=== PATIENT | female | born 1985 | race Caucasian/White ===

== ENCOUNTER 2017-07-29 12:09 | Inpatient (IN) | payer SELFPAY ==
[~2017-07-29] VITALS: Ht 165.1 cm; Wt 67.9 kg
[~2017-07-29 12:09] MED LIST: PRENTAB26 PO
[2017-07-29] MEDS ORDERED: MoRPHine SULFATE 2 MG/ML CARP IV STA (12:22)
[2017-07-29] MEDS ORDERED: ONDANSETRON INJ 2 MG/ML 2 ML VIAL IV STA (12:22)
[2017-07-29] MEDS ORDERED: SODIUM CHLORIDE 0.9% 1000ML 1,000 ML IV STA ×2 (12:22→13:50)
--- NOTE | 2017-07-29 12:49 | EMERGENCY ROOM VISIT NOTE ---
History First contact with patient: 12:15 Chief Complaint: ABDOMINAL PAIN Stated Complaint: ABD PAIN, DIARRHEA Nursing Triage Summary: pt presents for evaluation of abdominal pain, vomiting today, diarrhea since . History of Present Illness The patient is a 31 year old female who presents to the Emergency Room with complaints of abdominal pain and diarrhea. The patient states her symptoms started 2 days ago. She first developed some light vaginal bleeding and she thought she was getting her period. She states that she has had decreased appetite and felt worse on Monday. She states that yesterday morning the diarrhea started. She believes she noticed some blood in her stool today. She states the vaginal bleeding has completely stopped. She reports pain on the right side of the abdomen. She reports one episode of vomiting today. She rates her discomfort a 3/10. She states the pain is wavelike in nature. She denies any fevers. She denies any chest pain or trouble breathing. She denies any dysuria, urgency or frequency. She denies any recent antibiotic use or travel. She denies any recent sick contacts. She states she has had a tubal ligation and denies chance of . The patient was recently at the [employer]. 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 Review of Systems A 10 system review of systems was completed with positives and pertinent negatives listed in the HPI. Past Medical/Surgical History Medical Problems: (1) Bloody diarrhea patient denies Social History Smoking Status: Current Every Day Smoker Marital Status: single Allergies Coded Allergies: No Known Allergies (Verified , 07/29/17) Physical Exam Vital Signs Date Time Temp Pulse Resp B/P (MAP) Pulse Ox O2 Delivery O2 Flow Rate FiO2 07/29/17 16:00 99 Room Air 07/29/17 15:32 96 20 109/71 Room Air 07/29/17 14:45 80 117/71 91 125/75 88 123/73 07/29/17 14:01 90 20 122/71 99 Room Air 07/29/17 13:21 83 07/29/17 12:10 36.6 111 17 106/69 92 Room Air Physical Exam VITALS: Vitals are noted on the nurse's note and reviewed by myself. Vital signs stable. GENERAL: This is a 31 year old female, in no acute distress, nondiaphoretic, well-developed well-nourished. SKIN: The skin was without rashes, erythema, edema, or bruising. There is no tenting of the skin. Capillary reflex less than 2 seconds. HEAD: Normocephalic atraumatic. EARS: The external ears are normal in appearance. EYES: Pupils equal round and reactive to light and accommodation. Conjunctivae without injection, sclerae without icterus. Extraocular movements intact. NOSE: Patent, turbinates without inflammation or discharge. MOUTH: Mucous membranes moist. Tonsils are not enlarged. Pharynx without erythema or exudate. Uvula midline. Airway patent. Tongue does not deviate. NECK: Supple without nuchal rigidity. No lymphadenopathy. No thyromegaly. Cervical spine is nontender. No JVD. HEART: Regular rate and rhythm without murmurs gallops or rubs. LUNGS: Clear to auscultation bilaterally without wheezes, rales or rhonchi. No retractions or accessory muscle use. ABDOMEN: Positive bowel sounds x 4. Soft, moderate right lower abdominal tenderness, without masses or organomegaly. MUSCULOSKELETAL: No muscle atrophy, erythema, or edema noted. Full range of motion in all extremities. Normal gait. Strength 5/5 throughout. NEURO: Patient was alert and oriented to person place and time. No focal neurological deficits. Medical Decision & Procedures ER Provider Diagnostic Interpretation: ABD/PELVIS WITHOUT FOR STONE HISTORY: 31 years-old Female right flank pain acute right-sided flank pain with diarrhea and history of nephrolithiasis. COMPARISON: None available TECHNIQUE: Multiple axial CT images of the abdomen and pelvis were obtained without IV contrast. A dose lowering technique was used consistent with the principals of ALARA. FINDINGS: Lung bases are clear. There is no pneumoperitoneum identified. Imaged inferior cardiac chambers are unremarkable. The liver, spleen, pancreas and adrenal glands are within normal limits. 3 mm nonobstructing calculus is seen within the inferior pole left kidney. No definite ureteral calculi or hydronephrosis identified. 7 mm calcification of the right lateral hemipelvis suggests a phlebolith. Follicular changes are seen within the bilateral ovaries. Uterus is unremarkable. Mild to moderate amount of free pelvic fluid is seen within the dependent pelvis. The abdominal aorta is normal in course and caliber. Scattered hyperattenuating foci are seen within the colon. There is marked wall thickening of the colon measuring up to 1.5 cm involving the cecum extending to the mid transverse colon with surrounding moderate inflammatory changes. There is additional wall thickening with inflammatory stranding involving the terminal ileum. There is apparent irregularity of the mucosa within the ascending colon which is not well seen without contrast. Air-fluid levels within the colon are seen within this distribution. 10 x 5 mm appendicolith is noted within the mid appendiceal lumen. Appendix is upper limits of normal at 6 mm and is tortuous. Additional 6 mm calcification within the lower right pelvis may reflect an additional appendicolith. No definite evidence of acute appendicitis. Scattered adenopathy of the right lower quadrant mesentery with lymph nodes measuring up to 8 mm in short axis likely reactive. Soft tissues are unremarkable. Bones appear intact. IMPRESSION: 1. Marked wall thickening of the cecum, ascending and transverse colon with associated moderate mesenteric inflammatory stranding is noted with additional wall thickening and mild inflammation of the distal ileum. Differential considerations would include infectious colitis or inflammatory bowel disease. Follow-up colonoscopy after treatment may be beneficial to exclude neoplasm. 2. Appendicoliths are present within a noninflamed appearing appendix. 3. Mild free pelvic fluid, likely reactive. 4. Nonobstructing left nephrolithiasis. Laboratory Results 07/29/17 12:55 Red Blood Count 4.66, Mean Corpuscular Volume 92.7, Mean Corpuscular Hemoglobin 32.8, Mean Corpuscular Hemoglobin Concent 35.4, Mean Platelet Volume 10.0, Neutrophils (%) (Auto) 81.6, Lymphocytes (%) (Auto) 10.5, Monocytes (%) (Auto) 6.7, Eosinophils (%) (Auto) 0.8, Basophils (%) (Auto) 0.1, Neutrophils # (Auto) 11.77, Lymphocytes # (Auto) 1.51, Monocytes # (Auto) 0.97, Eosinophils # (Auto) 0.12, Basophils # (Auto) 0.02 07/29/17 12:55 Test 07/29/17 12:55 White Blood Count 14.43 K/uL (4.8-10.8) Red Blood Count 4.66 M/uL (4.2-5.4) Hemoglobin 15.3 g/dL (12.0-16.0) Hematocrit 43.2 % (37-47) Mean Corpuscular Volume 92.7 fL (80-100) Mean Corpuscular Hemoglobin 32.8 pg (25-34) Mean Corpuscular Hemoglobin Concent 35.4 g/dl (32-36) Platelet Count 196 K/uL (130-400) Mean Platelet Volume 10.0 fL (7.4-10.4) Neutrophils (%) (Auto) 81.6 % Lymphocytes (%) (Auto) 10.5 % Monocytes (%) (Auto) 6.7 % Eosinophils (%) (Auto) 0.8 % Basophils (%) (Auto) 0.1 % Neutrophils # (Auto) 11.77 K/uL (1.4-6.5) Lymphocytes # (Auto) 1.51 K/uL (1.2-3.4) Monocytes # (Auto) 0.97 K/uL (0.11-0.59) Eosinophils # (Auto) 0.12 K/uL (0-0.5) Basophils # (Auto) 0.02 K/uL (0-0.2) RDW Standard Deviation 41.3 fL (36.4-46.3) RDW Coefficient of Variation 12.2 % (11.5-14.5) Immature Granulocyte % (Auto) 0.3 % Immature Granulocyte # (Auto) 0.04 K/uL (0.00-0.02) Anion Gap 4.0 mmol/L (3-11) Est Creatinine Clear Calc Drug Dose 100.9 ml/min Estimated GFR () 128.4 Estimated GFR (Non- 110.8 BUN/Creatinine Ratio 12.8 (10-20) Calcium Level 9.2 mg/dl (8.5-10.1) Total Bilirubin 0.7 mg/dl (0.2-1) Aspartate Amino Transf (AST/SGOT) 12 U/L (15-37) Alanine Aminotransferase (ALT/SGPT) 18 U/L (12-78) Alkaline Phosphatase 85 U/L (45-117) Total Protein 7.9 gm/dl (6.4-8.2) Albumin 3.8 gm/dl (3.4-5.0) Globulin 4.1 gm/dl (2.5-4.0) Albumin/Globulin Ratio 0.9 (0.9-2) Lipase 58 U/L (73-393) Medications Administered Medications (Trade) Dose Ordered Sig/Herson Route Start Time Stop Time Status Last Admin Dose Admin Sodium Chloride 1,000 ml @ 999 mls/hr Q1H1M STAT IV 07/29/17 12:22 07/29/17 13:22 DC 07/29/17 12:22 999 MLS/HR Ondansetron HCl (Zofran Inj) 4 mg NOW STAT IV 07/29/17 12:22 07/29/17 12:24 DC 07/29/17 13:01 4 MG Morphine Sulfate (MoRPHine SULFATE INJ) 2 mg NOW STAT IV 07/29/17 12:22 07/29/17 12:24 DC 07/29/17 13:01 2 MG Morphine Sulfate (MoRPHine SULFATE INJ) 4 mg NOW STAT IV 07/29/17 13:41 07/29/17 13:43 DC 07/29/17 13:57 4 MG Ciprofloxacin/ Dextrose (Cipro / D5W) 400 mg NOW STAT IV 07/29/17 13:45 07/29/17 13:46 DC 07/29/17 14:07 400 MG Metronidazole (Flagyl / Nss) 500 mg NOW STAT IV 07/29/17 13:45 07/29/17 13:46 DC 07/29/17 14:07 500 MG Sodium Chloride 1,000 ml @ 999 mls/hr Q1H1M STAT IV 07/29/17 13:50 07/29/17 14:50 DC 07/29/17 13:57 999 MLS/HR Morphine Sulfate (MoRPHine SULFATE INJ) 4 mg NOW STAT IV 07/29/17 15:21 07/29/17 15:22 DC 07/29/17 15:31 4 MG Procedure The patient was monitored on a monitor and storage bin tender. She did have a sinus tachycardia. ED Course The patient was seen and examined. Previous visits were reviewed. The patient does not have a fever. She does have a leukocytosis of 14.43. She does not have any significant electrolyte abnormality. Lipase was not elevated. Stool sample was sent and cultures are pending. The patient was unable to provide a urine sample. CT scan of the abdomen and pelvis was obtained as above. The patient appears to have colitis. The patient was hydrated with normal saline solution The patient was given IV Cipro and IV Flagyl She was given a total of 3 doses of IV morphine, 2 mg, 4 mg and 4 mg. She was given 4 mg IV Zofran. The patient appears to have colitis. This is likely infectious in nature. She does have bloody diarrhea as well. She does not have any personal or family history of ulcerative colitis or Crohn's disease. She has not been on antibiotics recently. Initially, the patient want to try outpatient management. I had initially sent prescriptions for Zofran, Cipro, Flagyl and Percocet to the pharmacy. Prior to discharge, the patient again began to complain of 10/10 pain. I do not feel that the patient will be able to successfully complete outpatient management. I called the pharmacy to cancel all of the prescriptions. I discussed the case with Dr. Lucas. He will evaluate the patient. The C. difficile came back positive after the patient had been evaluated by Dr. Lucas. The charge nurse did notify him. The case was discussed with Dr. Causey who agrees with the assessment and plan. Medical Decision DIFFERENTIAL DIAGNOSIS: Hepatitis, cholecystitis, cholangitis, biliary colic, pancreatitis, pneumonia, subdiaphragmatic abscess, appendicitis, inguinal hernia , nephrolithiasis, inflammatory bowel disease, mesenteric adenitis, peptic ulcer disease, GERD, gastritis, pancreatitis, myocardial infarction, pericarditis, ruptured aortic aneurysm, appendicitis, gastroenteritis, bowel obstruction, splenic infarct, diverticulitis, mesenteric ischemia, metabolic, peritonitis, among others. CT Drug Monitoring Program Search Results: patient reviewed within database, no issues identified Impression Primary Impression: Colitis Additional Impressions: Bloody diarrhea Right lower quadrant abdominal pain Departure Information Dispostion Home / Self-Care Condition GOOD Referrals No Doctor, Assigned (PCP) Kendall Hernandez M.D. Patient Instructions ED Gastroenteritis Bacterial, My [facility] Problem Qualifiers
[2017-07-29 13:07] LABS: BASO % 0.1 %; BASO ABS # 0.02 K/uL (0-0.2); COMPLETE YES; EOS % 0.8 %; HEMATOCRIT 43.2 % (37-47); IG% 0.3 %; LYMPH % 10.5 %; LYMPH ABS # 1.51 K/uL (1.2-3.4); MEAN CELL VOLUME 92.7 fL (80-100); MEAN CORPUSCULAR HEMOGLOBIN 32.8 pg (25-34); MEAN CORPUSCULAR HGB CONC 35.4 g/dl (32-36); MONO % 6.7 %; NEUT % 81.6 %; PLATELET COUNT 196 K/uL (130-400); RED BLOOD COUNT 4.66 M/uL (4.2-5.4); WHITE BLOOD COUNT 14.43 K/uL (4.8-10.8)
[2017-07-29 13:26] LABS: BUN/CREATININE RATIO 12.8 (10-20); CALCIUM 9.2 mg/dl (8.5-10.1); CREATININE 0.72 mg/dl (0.60-1.20); POTASSIUM 3.6 mmol/L (3.5-5.1)
--- NOTE | 2017-07-29 13:33 | DIAGNOSTIC IMAGING REPORT ---
ABD/PELVIS WITHOUT FOR STONE HISTORY: 31 years-old Female right flank pain acute right-sided flank pain with diarrhea and history of nephrolithiasis. COMPARISON: None available TECHNIQUE: Multiple axial CT images of the abdomen and pelvis were obtained without IV contrast. A dose lowering technique was used consistent with the principals of DEDE. FINDINGS: Lung bases are clear. There is no pneumoperitoneum identified. Imaged inferior cardiac chambers are unremarkable. The liver, spleen, pancreas and adrenal glands are within normal limits. 3 mm nonobstructing calculus is seen within the inferior pole left kidney. No definite ureteral calculi or hydronephrosis identified. 7 mm calcification of the right lateral hemipelvis suggests a phlebolith. Follicular changes are seen within the bilateral ovaries. Uterus is unremarkable. Mild to moderate amount of free pelvic fluid is seen within the dependent pelvis. The abdominal aorta is normal in course and caliber. Scattered hyperattenuating foci are seen within the colon. There is marked wall thickening of the colon measuring up to 1.5 cm involving the cecum extending to the mid transverse colon with surrounding moderate inflammatory changes. There is additional wall thickening with inflammatory stranding involving the terminal ileum. There is apparent irregularity of the mucosa within the ascending colon which is not well seen without contrast. Air-fluid levels within the colon are seen within this distribution. 10 x 5 mm appendicolith is noted within the mid appendiceal lumen. Appendix is upper limits of normal at 6 mm and is tortuous. Additional 6 mm calcification within the lower right pelvis may reflect an additional appendicolith. No definite evidence of acute appendicitis. Scattered adenopathy of the right lower quadrant mesentery with lymph nodes measuring up to 8 mm in short axis likely reactive. Soft tissues are unremarkable. Bones appear intact. IMPRESSION: 1. Marked wall thickening of the cecum, ascending and transverse colon with associated moderate mesenteric inflammatory stranding is noted with additional wall thickening and mild inflammation of the distal ileum. Differential considerations would include infectious colitis or inflammatory bowel disease. Follow-up colonoscopy after treatment may be beneficial to exclude neoplasm. 2. Appendicoliths are present within a noninflamed appearing appendix. 3. Mild free pelvic fluid, likely reactive. 4. Nonobstructing left nephrolithiasis. The above report was generated using voice recognition software. It may contain grammatical, syntax or spelling errors. Electronically signed by: Bakari Peng M.D. 07/29/2017 1:32 PM Dictated Date/Time: 07/29/2017 1:23 PM
[2017-07-29] MEDS ORDERED: MoRPHine SULFATE 4 MG/ML 1 ML CARP\\VIAL IV STA ×2 (13:41→15:21)
[2017-07-29 13:45] LABS: ALB/GLOB RATIO 0.9 (0.9-2)
[2017-07-29] MEDS ORDERED: CIPROFLOXACIN 400MG / 200ML D5W IV STA (13:45)
[2017-07-29] MEDS ORDERED: METRONIDAZOLE 500MG / 100ML NSS IV STA (13:45)
[2017-07-29] MEDS ORDERED: OXYC-57 PO (14:51)
[2017-07-29] MEDS ORDERED: CIPR-255 PO (14:51)
[2017-07-29] MEDS ORDERED: ONDA4TAB10 SL (14:51)
[2017-07-29] MEDS ORDERED: METR-163 PO (14:51)
[2017-07-29 16:00] VITALS: O2SAT 99; Ht 165.1 cm; Wt 67.9 kg
[2017-07-29] MEDS ORDERED: ACETAMINOPHEN IV 100 ML IV PRN (16:15)
[2017-07-29] MEDS ORDERED: ZOLPIDEM TARTRATE 5 MG TAB PO PRN (16:15)
[2017-07-29] MEDS ORDERED: DiphenhydrAMINE HCL 50 MG/ML VIAL IV PRN (16:15)
[2017-07-29] MEDS ORDERED: ACETAMINOPHEN 325 MG TAB PO PRN (16:15)
[2017-07-29] MEDS ORDERED: METRONIDAZOLE / NSS 500 MG in PREMIXED NSS 100 ML IV SCH (16:30)
[2017-07-29] MEDS ORDERED: METRONIDAZOLE 500 MG TAB PO ONE (16:43)
--- NOTE | 2017-07-29 16:45 | History and Physical ---
History & Physical Date & Time of Service: Jul 29, 2017 at 16:31 Chief Complaint: Abd Pain, Diarrhea Primary Care Physician: No Doctor, Assigned History of Present Illness Source: patient The patient is a 31-year-old female who presents emergency department room with complaints of generalized abdominal pain and bloody diarrhea that began 2 days prior to arrival. She initially developed some light vaginal bleeding and thought she was getting her period. 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 She has no sick contacts that she is aware of, no recent antibiotic use, and has not had any recent travel. She has had a decreased appetite and has not been able to eat anything for 2 days. Family History NONCONTRIBUTORY Social History Smoking Status: Current Every Day Smoker Smokeless Tobacco Use: No Alcohol Use: none Drug Use: none Marital Status: single Housing status: lives with family Occupational Status: employed Immunizations History of Influenza Vaccine: Unknown History of Tetanus Vaccine?: tDAP TODAY BEFORE DISCH. Tetanus Immunization Date: Jul 15, 2007 History of Pneumococcal: Unknown History of Hepatitis B Vaccine: Unknown Multi-Drug Resistant Organisms History of MDRO: No Allergies Coded Allergies: No Known Allergies (Verified , 07/29/17) Review of Systems The patient denies chest pain, palpitations, shortness of breath, cough, lower extremity swelling, vision change, hearing change, sore throat, fevers, chills, sweats, blood in urine, dysuria, urinary frequency or urgency, lightheadedness, dizziness, headache, memory loss, rash, abnormal bruising, imbalance, focal weakness, numbness or tingling in arms or legs, generalized arthralgias or myalgias, back or neck pain, night sweats, or allergy symptoms. The review of systems is otherwise negative other than for that already noted above, and at least 10 systems have been reviewed. Physical Exam Vital Signs Date Time Temp Pulse Resp B/P (MAP) Pulse Ox O2 Delivery O2 Flow Rate FiO2 07/29/17 16:00 99 Room Air 07/29/17 15:32 96 20 109/71 Room Air 07/29/17 14:45 80 117/71 91 125/75 88 123/73 07/29/17 14:01 90 20 122/71 99 Room Air 07/29/17 13:21 83 07/29/17 12:10 36.6 111 17 106/69 92 Room Air The patient is awake, well-developed and adequately nourished, alert and oriented 3, normocephalic and atraumatic, lying in bed and in mild acute distress secondary to abdominal pain. HEENT--PERRL, EOMI, mucous membranes and oropharynx dry. Neck--supple, no JVD or bruits, thyroid normal, trachea midline, no adenopathy. Heart--normal S1 and S2, no extra beats, no murmurs, rubs or gallops. Lungs--clear bilaterally with good air movement, no respiratory distress, no accessory muscle use. Abdomen--normal bowel sounds and soft, generalized tenderness, nondistended, no hernias or masses, no organomegaly. Extremities--no cyanosis, clubbing or edema. There are good distal pulses b/l. Dermatologic--normal skin turgor, normal color, warm and dry, no abnormal lymph nodes, no rash. Neurologic--cranial nerves II through XII grossly intact, motor and sensory examination normal. Rheumatologic--normal range of motion, nontender, muscles and joints. Psychiatric--normal affect. Diagnostics Laboratory Results Results Past 24 Hours Test 07/29/17 12:55 Range/Units White Blood Count 14.43 4.8-10.8 K/uL Red Blood Count 4.66 4.2-5.4 M/uL Hemoglobin 15.3 12.0-16.0 g/dL Hematocrit 43.2 37-47 % Mean Corpuscular Volume 92.7 80-100 fL Mean Corpuscular Hemoglobin 32.8 25-34 pg Mean Corpuscular Hemoglobin Concent 35.4 32-36 g/dl Platelet Count 196 130-400 K/uL Mean Platelet Volume 10.0 7.4-10.4 fL Neutrophils (%) (Auto) 81.6 % Lymphocytes (%) (Auto) 10.5 % Monocytes (%) (Auto) 6.7 % Eosinophils (%) (Auto) 0.8 % Basophils (%) (Auto) 0.1 % Neutrophils # (Auto) 11.77 1.4-6.5 K/uL Lymphocytes # (Auto) 1.51 1.2-3.4 K/uL Monocytes # (Auto) 0.97 0.11-0.59 K/uL Eosinophils # (Auto) 0.12 0-0.5 K/uL Basophils # (Auto) 0.02 0-0.2 K/uL RDW Standard Deviation 41.3 36.4-46.3 fL RDW Coefficient of Variation 12.2 11.5-14.5 % Immature Granulocyte % (Auto) 0.3 % Immature Granulocyte # (Auto) 0.04 0.00-0.02 K/uL Sodium Level 136 136-145 mmol/L Potassium Level 3.6 3.5-5.1 mmol/L Chloride Level 103 98-107 mmol/L Carbon Dioxide Level 29 21-32 mmol/L Anion Gap 4.0 3-11 mmol/L Blood Urea Nitrogen 9 7-18 mg/dl Creatinine 0.72 0.60-1.20 mg/dl Est Creatinine Clear Calc Drug Dose 100.9 ml/min Estimated GFR () 128.4 Estimated GFR (Non- 110.8 BUN/Creatinine Ratio 12.8 10-20 Random Glucose 97 70-99 mg/dl Calcium Level 9.2 8.5-10.1 mg/dl Total Bilirubin 0.7 0.2-1 mg/dl Aspartate Amino Transf (AST/SGOT) 12 15-37 U/L Alanine Aminotransferase (ALT/SGPT) 18 12-78 U/L Alkaline Phosphatase 85 45-117 U/L Total Protein 7.9 6.4-8.2 gm/dl Albumin 3.8 3.4-5.0 gm/dl Globulin 4.1 2.5-4.0 gm/dl Albumin/Globulin Ratio 0.9 0.9-2 Lipase 58 73-393 U/L Microbiology Results 07/29/17 WBC Smear, Received Pending 07/29/17 Shiga Toxin Test, Received Pending 07/29/17 Stool Culture, Received Pending 07/29/17 C.difficile Toxin B Gene (PCR), Received Pending Diagnostic Radiology Patient Name: MEMO MERCER Unit Number: [id number] Dictated: 07/29/171322 Transcribed: 07/29/171322 GARCIA Printed Date/Time: [~ rep prt dt]/[~ rep prt tm] [~ rep ct labl] - [~ rep ct ivnm] [facility] [place] [address] Dictated: 07/29/171322 Transcribed: 07/29/171322 JRB Printed Date/Time: [~ rep prt dt]/[~ rep prt tm] [~ rep ct labl] - [~ rep ct ivnm] ABD/PELVIS WITHOUT FOR STONE HISTORY: 31 years-old Female right flank pain acute right-sided flank pain with diarrhea and history of nephrolithiasis. COMPARISON: None available TECHNIQUE: Multiple axial CT images of the abdomen and pelvis were obtained without IV contrast. A dose lowering technique was used consistent with the principals of DEDE. FINDINGS: Lung bases are clear. There is no pneumoperitoneum identified. Imaged inferior cardiac chambers are unremarkable. The liver, spleen, pancreas and adrenal glands are within normal limits. 3 mm nonobstructing calculus is seen within the inferior pole left kidney. No definite ureteral calculi or hydronephrosis identified. 7 mm calcification of the right lateral hemipelvis suggests a phlebolith. Follicular changes are seen within the bilateral ovaries. Uterus is unremarkable. Mild to moderate amount of free pelvic fluid is seen within the dependent pelvis. The abdominal aorta is normal in course and caliber. Scattered hyperattenuating foci are seen within the colon. There is marked wall thickening of the colon measuring up to 1.5 cm involving the cecum extending to the mid transverse colon with surrounding moderate inflammatory changes. There is additional wall thickening with inflammatory stranding involving the terminal ileum. There is apparent irregularity of the mucosa within the ascending colon which is not well seen without contrast. Air-fluid levels within the colon are seen within this distribution. 10 x 5 mm appendicolith is noted within the mid appendiceal lumen. Appendix is upper limits of normal at 6 mm and is tortuous. Additional 6 mm calcification within the lower right pelvis may reflect an additional appendicolith. No definite evidence of acute appendicitis. Scattered adenopathy of the right lower quadrant mesentery with lymph nodes measuring up to 8 mm in short axis likely reactive. Soft tissues are unremarkable. Bones appear intact. IMPRESSION: 1. Marked wall thickening of the cecum, ascending and transverse colon with associated moderate mesenteric inflammatory stranding is noted with additional wall thickening and mild inflammation of the distal ileum. Differential considerations would include infectious colitis or inflammatory bowel disease. Follow-up colonoscopy after treatment may be beneficial to exclude neoplasm. 2. Appendicoliths are present within a noninflamed appearing appendix. 3. Mild free pelvic fluid, likely reactive. 4. Nonobstructing left nephrolithiasis. The above report was generated using voice recognition software. It may contain grammatical, syntax or spelling errors. Electronically signed by: Bakari Peng M.D. 07/29/2017 1:32 PM Dictated Date/Time: 07/29/2017 1:23 PM The status of this report is Signed. Draft = Not yet reviewed or approved by Radiologist. Signed = Reviewed and approved by Radiologist. <AttendingPhy></AttendingPhy> <FamilyPhy>No Doctor, Assigned</FamilyPhy> < PrimaryPhy>No Doctor, Assigned</PrimaryPhy> <UnitNumber>[id number]</UnitNumber> <VisitNumber>[id number]</VisitNumber> <PatientName>MEMO MERCER</ PatientName> <DateOfBirth>1985</DateOfBirth> <Location>C.EDB</Location> < ServiceDate>07/29/17</ServiceDate> <MNE>ESINDI</MNE> <OrderingPhy>Betina Carmona PA-C</OrderingPhy> <OrderingPhyMNE>f rep ord dr magdaleno</OrderingPhyMNE > <DictatingPhyMNE>f rep dict dr magdaleno</DictatingPhyMNE> <CCListMNE>f rep ct sharla</ CCListMNE> <AdmittingPhyMNE>f pt admit dr magdaleno</AdmittingPhyMNE> <AttendingPhyMNE >f pt attend dr magdaleno</AttendingPhyMNE> <ConsultingPhyMNE>f pt consult dr magdaleno</ConsultingPhyMNE> <FamilyPhyMNE>f pt fam dr magdaleno</FamilyPhyMNE> <OtherPhyMNE>f pt other dr magdaleno</OtherPhyMNE> < PrimaryPhyMNE>f pt prim care dr magdaleno</PrimaryPhyMNE> <ReferringPhyMNE>f pt referring dr magadleno</ReferringPhyMNE> Impression Assessment and Plan C. difficile colitis--the patient will be admitted to the medical surgical floor. Normal saline with KCl 20 mEq at 150 ML's per hour. Famotidine 20 mg IV every 12 hours. Flagyl 500 mg by mouth 3 times a day. Morphine sulfate 2-4 mg IV every 2 hours when necessary moderate to severe pain. Clear liquid diet. Zofran 4 mg IV every 6 hours when necessary. Acetaminophen 650 mg by mouth every 6 hours when necessary mild pain or temperature Level of Care Med/Surg Advanced Directives Existing Advance Directive: No Existing Living Will: No Existing Power of Language Path: No Resuscitation Status FULL RESUSCITATION VTE Prophylaxis VTE Risk Assessment Done? Y/N: Yes Risk Level: Low Given or contraindicated: SCD's Social Service Consult None Apply
[2017-07-29 17:15] VITALS: BP 111/63; PULSE 95; TEMP 36.8; O2SAT 99
[2017-07-29] MEDS: NSS + 20MEQ KCL 1000ML 1,000 ML IV SCH (17:30)
[2017-07-29] MEDS: MoRPHine SULFATE 4 MG/ML 1 ML CARP\\VIAL IV PRN ×2 (17:33→19:49)
[2017-07-29] MEDS: FAMOTIDINE IV INJ 20 MG in DEXTROSE 5% 100ML 100 ML IV SCH (17:44)
[2017-07-29 19:44] LABS: URINE APPEARANCE CLEAR (CLEAR); URINE BILIRUBIN NEG (NEG); URINE COLOR YELLOW; URINE EPITHELIAL CELL AUTO >30 /lpf (0-5); URINE NITRITE NEG (NEG); URINE PH 5.5 (4.5-7.5); URINE SPECIFIC GRAVITY 1.014 (1.000-1.030); UROBILINOGEN NEG (NEG); ZZUR CULT IF INDIC CLEAN CATCH NO
[2017-07-29 19:45] LABS: MANUAL MICROSCOPIC REQUIRED? NO; REVIEW REQ? NO
[2017-07-29 19:47] LABS: PREG INTERNAL NEGATIVE QC NEG CLEAR BACKGROUND; PREG INTERNAL POSITIVE QC POS CONTROL LINE
[2017-07-29] MEDS: METRONIDAZOLE 500 MG TAB PO SCH (19:53)
[2017-07-29] MEDS: ONDANSETRON INJ 2 MG/ML 2 ML VIAL IV PRN (19:59)
[2017-07-30] VITALS: BP 104/68; PULSE 94; TEMP 36.9; O2SAT 97
[2017-07-30] MEDS: NSS + 20MEQ KCL 1000ML 1,000 ML IV SCH ×3 (00:29→13:35)
[2017-07-30] MEDS: MoRPHine SULFATE 2 MG/ML CARP IV PRN (00:29)
[2017-07-30 06:14] LABS: BASO % 0.2 %; BASO ABS # 0.02 K/uL (0-0.2); COMPLETE YES; EOS % 1.1 %; IG% 0.2 %; LYMPH % 13.2 %; LYMPH ABS # 1.48 K/uL (1.2-3.4); MEAN CELL VOLUME 95.9 fL (80-100); MEAN CORPUSCULAR HEMOGLOBIN 32.1 pg (25-34); MEAN CORPUSCULAR HGB CONC 33.4 g/dl (32-36); MEAN PLATELET VOLUME 9.8 fL (7.4-10.4); MONO % 6.1 %; NEUT % 79.2 %; PLATELET COUNT 144 K/uL (130-400); RED BLOOD COUNT 3.65 M/uL (4.2-5.4); WHITE BLOOD COUNT 11.17 K/uL (4.8-10.8)
[2017-07-30] MEDS: FAMOTIDINE IV INJ 20 MG in DEXTROSE 5% 100ML 100 ML IV SCH ×2 (06:16→19:21)
[2017-07-30 06:21] LABS: INR 1.1 (0.9-1.1); PARTIAL THROMBOPLASTIN RATIO 1.3; PROTHROMBIN TIME (PATIENT) 12.1 SECONDS (9.0-12.0)
[2017-07-30 07:00] LABS: ALT/SGPT 11 U/L (12-78); AST/SGOT 6 U/L (15-37); BLOOD UREA NITROGEN 5 mg/dl (7-18); BUN/CREATININE RATIO 11.8 (10-20); CARBON DIOXIDE 24 mmol/L (21-32); CHLORIDE 111 mmol/L (98-107); CREATININE 0.46 mg/dl (0.60-1.20); GLUCOSE 80 mg/dl (70-99); MAGNESIUM 1.7 mg/dl (1.8-2.4); POTASSIUM 3.8 mmol/L (3.5-5.1); SODIUM 141 mmol/L (136-145)
[2017-07-30 07:10] LABS: ALKALINE PHOSPHATASE 57 U/L (45-117)
[2017-07-30] MEDS: MoRPHine SULFATE 4 MG/ML 1 ML CARP\\VIAL IV PRN ×7 (07:30→19:20)
[2017-07-30] MEDS: METRONIDAZOLE 500 MG TAB PO SCH ×3 (07:33→20:08)
[2017-07-30 07:36] LABS: CALCIUM 7.8 mg/dl (8.5-10.1)
[2017-07-30 07:37] VITALS: BP 106/73; PULSE 63; TEMP 36.3; O2SAT 95
--- NOTE | 2017-07-30 13:20 | Family Medicine Progress Note ---
Progress Note Date of Service Jul 30, 2017. Subjective Pt evaluation today including: conversation w/ patient, physical exam, chart review, lab review, conversation w/ hr business partner consultant, review of inpatient medication list PO Intake: clear liquid diet Voiding: no voiding problems Patient admitted overnight for abdominal pain and diarrhea. Found to be c.diff positive Patient continues to have abdominal pain 5/10. 3 episodes of diarrhea this morning with blood. Able to tolerate full liquid diet No fevers, chills or sweats overnight. No nausea or vomiting. Constitutional: No fever, No chills, No sweats Respiratory: No cough, No sputum, No shortness of breath Cardiovascular: No chest pain, No edema, No palpitations Abdomen: + pain, + diarrhea, + GI bleeding, No nausea, No vomiting Skin: No rash, No itch, No new/changing skin lesions Medications Current Inpatient Medications Medications (Trade) Dose Ordered Sig/Herson Route Start Time Stop Time Status Last Admin Dose Admin Acetaminophen (Tylenol Tab) 650 mg Q4H PRN PO 07/29/17 16:15 08/28/17 16:14 Zolpidem Tartrate (Ambien Tab) 5 mg HSZ PRN PO 07/29/17 16:15 08/28/17 16:14 Ondansetron HCl (Zofran Inj) 4 mg Q6H PRN IV 07/29/17 16:15 08/28/17 16:14 07/29/17 19:59 4 MG Acetaminophen 100 ml @ 400 mls/hr Q8H PRN IV 07/29/17 16:15 08/28/17 16:14 Famotidine 20 mg/ Dextrose 102 ml @ 200 mls/hr Q12H IV 07/29/17 18:00 08/28/17 17:59 07/30/17 06:16 200 MLS/HR Potassium Chloride/Sodium Chloride 1,000 ml @ 110 mls/hr Q9H6M IV 07/29/17 18:00 08/28/17 17:59 07/30/17 07:32 150 MLS/HR Morphine Sulfate (MoRPHine SULFATE INJ) 2 mg Q2H PRN IV 07/29/17 16:15 08/12/17 16:14 07/30/17 00:29 2 MG Morphine Sulfate (MoRPHine SULFATE INJ) 4 mg Q2H PRN IV 07/29/17 16:15 08/12/17 16:14 07/30/17 11:26 4 MG Diphenhydramine HCl (Benadryl Inj) 25 mg Q4H PRN IV 07/29/17 16:15 08/28/17 16:14 Metronidazole (Flagyl Tab) 500 mg TID PO 07/29/17 20:00 08/12/17 20:59 07/30/17 07:33 500 MG Ranitidine HCl (zANTac TAB) 150 mg BID PO 07/30/17 20:00 08/29/17 19:59 UNV Objective Vital Signs Date Time Temp Pulse Resp B/P (MAP) Pulse Ox O2 Delivery O2 Flow Rate FiO2 07/30/17 07:41 Room Air 07/30/17 07:37 36.3 63 20 106/73 (84) 95 Room Air 07/30/17 00:00 36.9 94 22 104/68 (80) 97 Room Air 07/29/17 23:59 Room Air 07/29/17 20:00 Room Air 07/29/17 17:15 36.8 95 22 111/63 (79) 99 Room Air 07/29/17 16:39 79 18 118/62 100 Room Air 07/29/17 16:00 99 Room Air 07/29/17 15:32 96 20 109/71 Room Air 07/29/17 14:45 80 117/71 91 125/75 88 123/73 07/29/17 14:01 90 20 122/71 99 Room Air 07/29/17 13:21 83 Physical Exam General Appearance: WD/WN, no apparent distress ENT: pharynx normal Respiratory/Chest: lungs clear, no respiratory distress, no accessory muscle use Cardiovascular: regular rate, rhythm, no JVD, no murmur Abdomen: normal bowel sounds, soft, no organomegaly, + rebound (in RLQ), + tenderness (most prominent in RLQ), + pertinent finding (Rovsings sign and psoas sign negative) Extremities: no calf tenderness Neurologic/Psychiatric: alert, normal mood/affect, oriented x 3 Skin: normal color, warm/dry, no rash Laboratory Results Results Past 24 Hours Test 07/29/17 19:28 07/30/17 05:56 Range/Units Urine Color YELLOW Urine Appearance CLEAR CLEAR Urine pH 5.5 4.5-7.5 Urine Specific [place] 1.014 1.000-1.030 Urine Protein NEG NEG Urine Glucose (UA) NEG NEG Urine Ketones 1+ NEG Urine Occult Blood 2+ NEG Urine Nitrite NEG NEG Urine Bilirubin NEG NEG Urine Urobilinogen NEG NEG Urine Leukocyte Esterase NEG NEG Urine WBC (Auto) 5-10 0-5 /hpf Urine RBC (Auto) 0-4 0-4 /hpf Urine Hyaline Casts (Auto) 1-5 0-5 /lpf Urine Epithelial Cells (Auto) >30 0-5 /lpf Urine Bacteria (Auto) NEG NEG Urine Test NEG NEG White Blood Count 11.17 4.8-10.8 K/uL Red Blood Count 3.65 4.2-5.4 M/uL Hemoglobin 11.7 12.0-16.0 g/dL Hematocrit 35.0 37-47 % Mean Corpuscular Volume 95.9 80-100 fL Mean Corpuscular Hemoglobin 32.1 25-34 pg Mean Corpuscular Hemoglobin Concent 33.4 32-36 g/dl Platelet Count 144 130-400 K/uL Mean Platelet Volume 9.8 7.4-10.4 fL Neutrophils (%) (Auto) 79.2 % Lymphocytes (%) (Auto) 13.2 % Monocytes (%) (Auto) 6.1 % Eosinophils (%) (Auto) 1.1 % Basophils (%) (Auto) 0.2 % Neutrophils # (Auto) 8.85 1.4-6.5 K/uL Lymphocytes # (Auto) 1.48 1.2-3.4 K/uL Monocytes # (Auto) 0.68 0.11-0.59 K/uL Eosinophils # (Auto) 0.12 0-0.5 K/uL Basophils # (Auto) 0.02 0-0.2 K/uL RDW Standard Deviation 43.4 36.4-46.3 fL RDW Coefficient of Variation 12.3 11.5-14.5 % Immature Granulocyte % (Auto) 0.2 % Immature Granulocyte # (Auto) 0.02 0.00-0.02 K/uL Prothrombin Time 12.1 9.0-12.0 SECONDS Prothromb Time International Ratio 1.1 0.9-1.1 Activated Partial Thromboplast Time 33.6 21.0-31.0 SECONDS Partial Thromboplastin Ratio 1.3 Sodium Level 141 136-145 mmol/L Potassium Level 3.8 3.5-5.1 mmol/L Chloride Level 111 98-107 mmol/L Carbon Dioxide Level 24 21-32 mmol/L Anion Gap 6.0 3-11 mmol/L Blood Urea Nitrogen 5 7-18 mg/dl Creatinine 0.46 0.60-1.20 mg/dl Est Creatinine Clear Calc Drug Dose 158.0 ml/min Estimated GFR () > 150.0 Estimated GFR (Non- 131.6 BUN/Creatinine Ratio 11.8 10-20 Random Glucose 80 70-99 mg/dl Calcium Level 7.8 8.5-10.1 mg/dl Magnesium Level 1.7 1.8-2.4 mg/dl Total Bilirubin 0.5 0.2-1 mg/dl Direct Bilirubin 0.1 0-0.2 mg/dl Aspartate Amino Transf (AST/SGOT) 6 15-37 U/L Alanine Aminotransferase (ALT/SGPT) 11 12-78 U/L Alkaline Phosphatase 57 45-117 U/L Total Protein 5.6 6.4-8.2 gm/dl Albumin 2.5 3.4-5.0 gm/dl Microbiology Results 07/29/17 WBC Smear - Final, Resulted 07/29/17 Shiga Toxin Test - Preliminary, Resulted No E. Coli shiga toxin 1 or shiga tox... 07/29/17 Stool Culture - Preliminary, Resulted NO SALMONELLA ISOLATED TO DATE,... 07/29/17 C.difficile Toxin B Gene (PCR) - Final, Complete Positive for C. difficile toxin B gene Assessment and Plan 31 year old female diagnosed with C.diff colitis C.diff colitis - CT scan showed inflammatory changes and thickening in cecum, ascending and transverse colon - C diff toxin positive - Started om flagyl PO tid - Switched to zantac 150bid PO - Continue maintenance fluids of 125 mls/hr - Morphine IV 2mg for pain control - Repeat abdominal xray to monitor for perforation or toxic megacolon - Stool studies still pending - Will need follow up colonoscopy in 6 weeks as outpatient - Advance diet to regular diet at dinner Anemia - Hgb 11.17 from 15 on admission - Likely acute blood loss from diarrhea and dehydration - Repeat h/h at 3pm DVT prophylaxis - SCD FULL CODE Continued [facility] stay due to: inadequate oral pain control Reviewed: Pt Seen/Exam by Me History Resident Physician Supervision Note: I interviewed and examined the patient. Discussed with Dr. Mcgill and agree with findings and plan as documented in the note. Any exceptions or clarifications are listed here: Pt still having bloody stools mixed with brown stool, lower abd pain R>L, no nausea but after eating reg diet today she had worsening pain. No recent abx use, no recent illness, no h/o C. diff Vitals reviewed mild distress, alert, awake, oriented RRR no mgr CTAB breathing unlabored Abd hypoactive BS, soft, +TTP RLQ>LLQ with some guarding on right side Ext no edema, 2+ DP pulses bilat, no calf tenderness KUB today with persistent marked colonic wall thickening Pt is a 31 yo female with C. diff colitis, likely community-acquired given no recent viral GE, no abx use, no h/o C. diff, and was at [facility] x 10 days with chance of exposure. -continue po Flagyl and if no improvement in first 48 hrs, switch to po Vanco -continue IVF hydration, pain meds -check Abd xray if worsening pain Documented By: Michelle Mars
--- NOTE | 2017-07-30 14:00 | DIAGNOSTIC IMAGING REPORT ---
KUB CLINICAL HISTORY: Abdominal pain. COMPARISON STUDY: CT of the abdomen and pelvis July 29, 2017. FINDINGS: The sensitivity for detection of free air is diminished on this supine exam. However, none is identified. Note is made of thumbprinting of the ascending colon and hepatic flexure consistent with marked colonic wall thickening which was shown on CT of July 29, 2015. IMPRESSION: Redemonstration of marked wall thickening of the ascending colon and hepatic flexure consistent with colitis, likely infectious in etiology. No bowel obstruction. Electronically signed by: Estuardo Polk M.D. 07/30/2017 1:59 PM Dictated Date/Time: 07/30/2017 1:56 PM
[2017-07-30 15:00] LABS: HEMATOCRIT 33.1 % (37-47)
[2017-07-30 16:14] VITALS: BP 101/66; PULSE 68; TEMP 36.9; O2SAT 96
[2017-07-30] MEDS ORDERED: MAGNESIUM SULFATE 1GM / D5W 1 GM in PREMIXED IN D5W 100 ML IV ONE (17:00)
[2017-07-30 17:30] VITALS: O2SAT 96
[2017-07-30] MEDS: ONDANSETRON INJ 2 MG/ML 2 ML VIAL IV PRN (19:20)
[2017-07-30] MEDS: RANITIDINE HCL 150 MG TAB PO SCH (20:08)
[2017-07-31] VITALS: BP 99/60; PULSE 84; TEMP 37.3; O2SAT 96
[2017-07-31] MEDS: NSS + 20MEQ KCL 1000ML 1,000 ML IV SCH ×3 (00:14→17:59)
[2017-07-31] MEDS: MoRPHine SULFATE 2 MG/ML CARP IV PRN ×4 (04:50→16:01)
[2017-07-31] MEDS: FAMOTIDINE IV INJ 20 MG in DEXTROSE 5% 100ML 100 ML IV SCH ×2 (06:14→18:00)
[2017-07-31 07:37] LABS: BASO % 0.5 %; BASO ABS # 0.04 K/uL (0-0.2); COMPLETE YES; HEMATOCRIT 31.8 % (37-47); IG% 0.4 %; LYMPH % 20.5 %; LYMPH ABS # 1.69 K/uL (1.2-3.4); MEAN CELL VOLUME 94.4 fL (80-100); MEAN CORPUSCULAR HEMOGLOBIN 32.3 pg (25-34); MEAN CORPUSCULAR HGB CONC 34.3 g/dl (32-36); MEAN PLATELET VOLUME 9.7 fL (7.4-10.4); NEUT % 68.6 %; PLATELET COUNT 132 K/uL (130-400); RED BLOOD COUNT 3.37 M/uL (4.2-5.4); WHITE BLOOD COUNT 8.24 K/uL (4.8-10.8)
[2017-07-31 07:45] LABS: INR 1.1 (0.9-1.1); PARTIAL THROMBOPLASTIN RATIO 1.3; PROTHROMBIN TIME (PATIENT) 11.8 SECONDS (9.0-12.0)
[2017-07-31] MEDS: RANITIDINE HCL 150 MG TAB PO SCH ×2 (07:49→19:44)
[2017-07-31] MEDS: METRONIDAZOLE 500 MG TAB PO SCH ×3 (07:49→19:44)
[2017-07-31 07:59] VITALS: BP 101/65; PULSE 74; TEMP 36.8; O2SAT 96
[2017-07-31 08:12] LABS: ALT/SGPT 9 U/L (12-78); BLOOD UREA NITROGEN 4 mg/dl (7-18); CALCIUM 8.2 mg/dl (8.5-10.1); CARBON DIOXIDE 25 mmol/L (21-32); CHLORIDE 111 mmol/L (98-107); CREATININE 0.35 mg/dl (0.60-1.20); GLUCOSE 92 mg/dl (70-99); MAGNESIUM 1.9 mg/dl (1.8-2.4); POTASSIUM 3.8 mmol/L (3.5-5.1); SODIUM 142 mmol/L (136-145)
[2017-07-31 08:15] LABS: ALKALINE PHOSPHATASE 57 U/L (45-117); AST/SGOT 8 U/L (15-37)
[2017-07-31] MEDS: MoRPHine SULFATE 4 MG/ML 1 ML CARP\\VIAL IV PRN (09:25)
[2017-07-31 12:00] VITALS: O2SAT 96
[2017-07-31 15:07] VITALS: BP 98/66; PULSE 67; TEMP 36.5; O2SAT 100
--- NOTE | 2017-07-31 17:43 | Family Medicine Progress Note ---
Progress Note Date of Service Jul 31, 2017. Subjective Pt evaluation today including: conversation w/ patient, physical exam, chart review, lab review, review of studies Pain: Mild abdominal cramping 4/10 Voiding: no voiding problems, no incontinence Patient is resting comfortably in bed this morning with no acute events overnight. The patient states the she did have some blood streaking in her stool this morning but no gross blood with her bowel movement. She has also had 4/10 intermittent abdominal cramping but that has improved from the last few day. She was also able to eat mashed potatoes today and has tolerated it well. She expressed a desire to transition from IV pain medications to PO if possible. Constitutional: + fatigue, No fever, No chills, No sweats Respiratory: No cough, No wheezing Cardiovascular: No chest pain, No palpitations Abdomen: + pain, + diarrhea, + GI bleeding, No nausea, No vomiting, No constipation Musculoskeletal: No joint pain Female : No dysuria Neurologic: No weakness Medications Current Inpatient Medications Medications (Trade) Dose Ordered Sig/Herson Route Start Time Stop Time Status Last Admin Dose Admin Acetaminophen (Tylenol Tab) 650 mg Q4H PRN PO 07/29/17 16:15 08/28/17 16:14 Zolpidem Tartrate (Ambien Tab) 5 mg HSZ PRN PO 07/29/17 16:15 08/28/17 16:14 Ondansetron HCl (Zofran Inj) 4 mg Q6H PRN IV 07/29/17 16:15 08/28/17 16:14 07/30/17 19:20 4 MG Acetaminophen 100 ml @ 400 mls/hr Q8H PRN IV 07/29/17 16:15 08/28/17 16:14 Famotidine 20 mg/ Dextrose 102 ml @ 200 mls/hr Q12H IV 07/29/17 18:00 08/28/17 17:59 07/31/17 06:14 200 MLS/HR Potassium Chloride/Sodium Chloride 1,000 ml @ 110 mls/hr Q9H6M IV 07/29/17 18:00 08/28/17 17:59 07/31/17 07:50 110 MLS/HR Morphine Sulfate (MoRPHine SULFATE INJ) 2 mg Q2H PRN IV 07/29/17 16:15 9/16/17 16:14 07/31/17 16:01 2 MG Morphine Sulfate (MoRPHine SULFATE INJ) 4 mg Q2H PRN IV 07/29/17 16:15 08/12/17 16:14 07/31/17 09:25 4 MG Diphenhydramine HCl (Benadryl Inj) 25 mg Q4H PRN IV 07/29/17 16:15 08/28/17 16:14 Metronidazole (Flagyl Tab) 500 mg TID PO 07/29/17 20:00 08/12/17 20:59 07/31/17 14:06 500 MG Ranitidine HCl (zANTac TAB) 150 mg BID PO 07/30/17 20:00 08/29/17 19:59 07/31/17 07:49 150 MG Oxycodone/ Acetaminophen (Percocet 5-325mg Tab) 1 tab Q4H PRN PO 07/31/17 14:00 08/14/17 13:59 Objective Vital Signs Date Time Temp Pulse Resp B/P (MAP) Pulse Ox O2 Delivery O2 Flow Rate FiO2 07/31/17 15:07 36.5 67 20 98/66 (77) 100 Room Air 07/31/17 12:00 96 Room Air 07/31/17 08:00 Room Air 07/31/17 07:59 36.8 74 18 101/65 (77) 96 Room Air 07/31/17 00:00 37.3 84 18 99/60 (73) 96 Room Air 07/30/17 23:59 Room Air 07/30/17 20:00 Room Air Physical Exam General Appearance: WD/WN, no apparent distress Eyes: normal inspection, sclerae normal Respiratory/Chest: chest non-tender, lungs clear, normal breath sounds Cardiovascular: regular rate, rhythm, no edema, no gallop Abdomen: normal bowel sounds, soft, + tenderness (RLQ abdominal tenderness) Extremities: no pedal edema, no calf tenderness Neurologic/Psychiatric: alert, normal mood/affect, oriented x 3 Laboratory Results Results Past 24 Hours Test 07/31/17 07:10 Range/Units White Blood Count 8.24 4.8-10.8 K/uL Red Blood Count 3.37 4.2-5.4 M/uL Hemoglobin 10.9 12.0-16.0 g/dL Hematocrit 31.8 37-47 % Mean Corpuscular Volume 94.4 80-100 fL Mean Corpuscular Hemoglobin 32.3 25-34 pg Mean Corpuscular Hemoglobin Concent 34.3 32-36 g/dl Platelet Count 132 130-400 K/uL Mean Platelet Volume 9.7 7.4-10.4 fL Neutrophils (%) (Auto) 68.6 % Lymphocytes (%) (Auto) 20.5 % Monocytes (%) (Auto) 7.0 % Eosinophils (%) (Auto) 3.0 % Basophils (%) (Auto) 0.5 % Neutrophils # (Auto) 5.65 1.4-6.5 K/uL Lymphocytes # (Auto) 1.69 1.2-3.4 K/uL Monocytes # (Auto) 0.58 0.11-0.59 K/uL Eosinophils # (Auto) 0.25 0-0.5 K/uL Basophils # (Auto) 0.04 0-0.2 K/uL RDW Standard Deviation 42.2 36.4-46.3 fL RDW Coefficient of Variation 12.3 11.5-14.5 % Immature Granulocyte % (Auto) 0.4 % Immature Granulocyte # (Auto) 0.03 0.00-0.02 K/uL Prothrombin Time 11.8 9.0-12.0 SECONDS Prothromb Time International Ratio 1.1 0.9-1.1 Activated Partial Thromboplast Time 32.6 21.0-31.0 SECONDS Partial Thromboplastin Ratio 1.3 Sodium Level 142 136-145 mmol/L Potassium Level 3.8 3.5-5.1 mmol/L Chloride Level 111 98-107 mmol/L Carbon Dioxide Level 25 21-32 mmol/L Anion Gap 6.0 3-11 mmol/L Blood Urea Nitrogen 4 7-18 mg/dl Creatinine 0.35 0.60-1.20 mg/dl Est Creatinine Clear Calc Drug Dose 207.6 ml/min Estimated GFR () > 150.0 Estimated GFR (Non- 144.0 BUN/Creatinine Ratio 10.0 10-20 Random Glucose 92 70-99 mg/dl Calcium Level 8.2 8.5-10.1 mg/dl Phosphorus Level 1.6 2.5-4.9 mg/dl Magnesium Level 1.9 1.8-2.4 mg/dl Total Bilirubin 0.4 0.2-1 mg/dl Direct Bilirubin 0.1 0-0.2 mg/dl Aspartate Amino Transf (AST/SGOT) 8 15-37 U/L Alanine Aminotransferase (ALT/SGPT) 9 12-78 U/L Alkaline Phosphatase 57 45-117 U/L Total Protein 5.5 6.4-8.2 gm/dl Albumin 2.5 3.4-5.0 gm/dl Assessment and Plan 31 year old female that presented on 07/29 with generalized abdominal pain and bloody diarrhea found to have Clostridium Difficile colitis 1) Clostridium Difficile Colitis - Abdominal pain improving, Leukocytosis improving, and hematochezia improving, Tolerating regular diet - C diff toxin positive - PO Flagyl day 2 - CT scan: Inflammatory changes and thickening in cecum, ascending and transverse colon - Abdominal X-Ray: Marked wall thickening of the ascending colon and hepatic flexure consistent with colitis, likely infectious in etiology. No bowel obstruction. - Zantac 150mg PO BID - Continue maintenance fluids of 110 mls/hr --> Once able to tolerate PO diet after 24 hrs will stop fluids - Morphine IV 2mg q2h PRN for pain control - Percocet 5/325 PO q4h PRN for pain - Stool studies pending (Ova Parasites, Isospora and Cyclospora, Cryptosporidium , Parasite Trichome) - Will need follow up colonoscopy in 6 weeks as outpatient 2) Anemia - Hgb 10.9 (15.3 on admission) - Stable since yesterday (11.0 yesterday afternoon) - Likely acute blood loss from diarrhea and dehydration - H/H in tomorrow's labs 3) DVT prophylaxis - SCD 4) Code Status - Full Resuscitation Resident Physician Supervision Note: I interviewed and examined the patient. Discussed with Dr. Shaikh and agree with findings and plan as documented in the note. Any exceptions or clarifications are listed here: None Documented By: Josué Klein feeling better but still needingpain meds, diarrhea improving but still persists all other ROS otherwise negative except for as above vitals noted nad fatigued appearing abd soft nd but diffuse tenderness voluntary guarding no rigidity Cdiff colitis w sepsis present on admission -improving -continue current care -home once pain improved -discussed contagion prevention otherwise as above
[2017-07-31] MEDS: OXYCODONE/ACETAMINOPHEN 5-325 TAB PO PRN (18:05)
[2017-07-31] MEDS: ONDANSETRON INJ 2 MG/ML 2 ML VIAL IV PRN (19:38)
[2017-07-31 23:05] VITALS: BP 108/73; PULSE 72; TEMP 37; O2SAT 99
[2017-08-01] MEDS: NSS + 20MEQ KCL 1000ML 1,000 ML IV SCH (02:30)
[2017-08-01] MEDS: MoRPHine SULFATE 2 MG/ML CARP IV PRN ×2 (02:41→07:23)
[2017-08-01] MEDS: FAMOTIDINE IV INJ 20 MG in DEXTROSE 5% 100ML 100 ML IV SCH (05:32)
[2017-08-01] MEDS ORDERED: POTASSIUM PHOS 3 MMOL/1 ML INFUSION IV STA (06:40)
[2017-08-01] MEDS ORDERED: POTASSIUM PHOSPHATE INJ 21 MMOL in SODIUM CHLORIDE 0.9% 500ML 500 ML IV STA (06:46)
[2017-08-01 07:11] LABS: BASO % 0.5 %; BASO ABS # 0.03 K/uL (0-0.2); COMPLETE YES; EOS % 5.5 %; HEMATOCRIT 31.8 % (37-47); IG% 0.2 %; LYMPH % 33.4 %; LYMPH ABS # 1.83 K/uL (1.2-3.4); MEAN CELL VOLUME 94.1 fL (80-100); MEAN CORPUSCULAR HEMOGLOBIN 31.1 pg (25-34); MONO % 9.1 %; NEUT % 51.3 %; PLATELET COUNT 154 K/uL (130-400); RED BLOOD COUNT 3.38 M/uL (4.2-5.4); WHITE BLOOD COUNT 5.48 K/uL (4.8-10.8)
[2017-08-01 07:19] LABS: INR 1.1 (0.9-1.1); PARTIAL THROMBOPLASTIN RATIO 1.2; PROTHROMBIN TIME (PATIENT) 11.9 SECONDS (9.0-12.0)
[2017-08-01] MEDS: METRONIDAZOLE 500 MG TAB PO SCH ×2 (07:23→13:28)
[2017-08-01] MEDS: RANITIDINE HCL 150 MG TAB PO SCH (07:23)
[2017-08-01 07:43] VITALS: BP 97/68; PULSE 66; TEMP 36.9; O2SAT 98
[2017-08-01 07:46] LABS: ALT/SGPT 12 U/L (12-78); BLOOD UREA NITROGEN 3 mg/dl (7-18); BUN/CREATININE RATIO 6.8 (10-20); CALCIUM 8.1 mg/dl (8.5-10.1); CARBON DIOXIDE 28 mmol/L (21-32); CHLORIDE 112 mmol/L (98-107); GLUCOSE 94 mg/dl (70-99); MAGNESIUM 1.8 mg/dl (1.8-2.4); POTASSIUM 3.9 mmol/L (3.5-5.1); SODIUM 142 mmol/L (136-145)
[2017-08-01 07:49] LABS: ALKALINE PHOSPHATASE 60 U/L (45-117); AST/SGOT 9 U/L (15-37)
[2017-08-01 08:00] VITALS: O2SAT 98
[2017-08-01] MEDS ORDERED: ONDANSETRON 4 MG TAB PO PRN (08:15)
[2017-08-01] MEDS: OXYCODONE/ACETAMINOPHEN 5-325 TAB PO PRN (10:10)
[2017-08-01] MEDS ORDERED: METR500T PO (12:21)
[2017-08-01] MEDS ORDERED: ONDA4TAB10 SL (12:34)
[2017-08-01] MEDS ORDERED: OXYC-57 PO (12:34)
--- NOTE | 2017-08-01 12:34 | Discharge Instructions ---
Discharge Instructions Date of Service Aug 01, 2017. Admission Reason for Admission: Bloody Diarrhea, Colitis Discharge Discharge Diagnosis / Problem: clostridium difficile colitis Discharge Goals Goal(s): Diagnostic testing, Therapeutic intervention Activity Recommendations Activity Limitations: resume your previous activity . Instructions / Follow-Up Instructions / Follow-Up C. Diff colitis -this is caused by clostridium difficile - a bacteria that makes a toxin that causes inflammation of the colon and diarrhea -- this is what made you sick -it is a bacteria that forms spores, it's unfortunately quite likely that you picked up spores at [facility] from someone else who was likely infected -you are getting better quite quickly, which is a good sign -- but because the bacteria's spores are resistant to antibiotics, we have to treat for a while (14 days) and after treatment, you'll need to watch things closely, as about 20% of people will have a relapse in spite of doing everything right. in that respect , follow things closely for the week or so after you're done with the antibiotics - if you have a recurrence of loose stools, abdominal pain, etc - call your PCP to get back on antibiotics right away (fortunately, there is a good 80% chance this won't happen, but it's better to review what it would "look like" so you get treated right away if it occurs) -flagyl (metronidazole) is usually really well tolerated, although, as we discussed, it does have a particularly nasty interaction with alcohol (where even a drink could cause a serious bout of nausea/vomiting). the other tricky thing with the flagyl is to remember that mid-day dose. if you forget to take it (which happens to the best of us) take it as soon as you realize you forgot. another nice trick would be to set a cell phone alarm to remind you for the mid day dosing -while it's actually not that common for people to get Cdiff without having been on antibiotics (that upset normal gut bacteria) or being immune compromised , our concern would be that this strain of Cdiff may be more contagious than most since you got sick without any of the "traditional risk factors" -- in this respect, as we discussed, use one bathroom as yours, and wash hands with soap/water, clean the area (including toilet seat, handle, sink, light switch, door knob, etc) with bleach wipes to kill the spores. Hand camp boss gels unfortunately do not work to kill Cdiff spores -use the percocet (oxycodone) as needed for pain (it can be a bit constipating, and can make you groggy so certainly be careful when/if you need to take it), and use the zofran (ondansetron) because your colon was so inflamed (to the point of a lot of pain and blood), while it's far and away most likely that the blood/severe pain was all due to severe inflammation from the Cdiff, we definitely recommend that in the near future (arbitrarily between now and about ) that you have a colonoscopy done to ensure that the swelling/inflammation and bleeding wasn't Cdiff as well as something like Crohn's or Ulcerative Colitis. while these are unlikely, they are problems that can be well managed but can lead to fairly significant problems if untreated, therefore, it's better to rule them out definitively. Current Hospital Diet Patient's current hospital diet: Low Fiber Diet Discharge Diet Recommended Diet: Regular Diet Pending Studies Studies pending at discharge: no Medical Emergencies . Who to Call and When: Medical Emergencies: If at any time you feel your situation is an emergency, please call 911 immediately. . Non-Emergent Contact Non-Emergency issues call your: Primary Care Provider, Assistant Wrestling Coach . . "Provider Documentation" section prepared by Josué Klein. . VTE Core Measure Inpt VTE Proph given/why not?: SCD's
[2017-08-01 13:12] VITALS: BP 97/68; PULSE 66; TEMP 36.9; O2SAT 98
--- NOTE | 2017-08-01 19:05 | Discharge Summary ---
Discharge Summary Date of Service Aug 01, 2017. Discharge Summary Admission Date: Jul 29, 2017 at 16:10 Discharge Date: Aug 01, 2017 Discharge Disposition: Home Principal Diagnosis: Cdiff colitis w hematochezia Immunizations: Have You Had Influenza Vaccine: Unknown History of Tetanus Vaccine?: tDAP TODAY BEFORE DISCH. Tetanus Immunization Date: Jul 15, 2007 History of Pneumococcal: Unknown History of Hepatitis B Vaccine: Unknown Procedures: Stool for Cdiff positive remainder of stool cultures negative ABD/PELVIS WITHOUT FOR STONE HISTORY: 31 years-old Female right flank pain acute right-sided flank pain with diarrhea and history of nephrolithiasis. COMPARISON: None available TECHNIQUE: Multiple axial CT images of the abdomen and pelvis were obtained without IV contrast. A dose lowering technique was used consistent with the principals of DEDE. FINDINGS: Lung bases are clear. There is no pneumoperitoneum identified. Imaged inferior cardiac chambers are unremarkable. The liver, spleen, pancreas and adrenal glands are within normal limits. 3 mm nonobstructing calculus is seen within the inferior pole left kidney. No definite ureteral calculi or hydronephrosis identified. 7 mm calcification of the right lateral hemipelvis suggests a phlebolith. Follicular changes are seen within the bilateral ovaries. Uterus is unremarkable. Mild to moderate amount of free pelvic fluid is seen within the dependent pelvis. The abdominal aorta is normal in course and caliber. Scattered hyperattenuating foci are seen within the colon. There is marked wall thickening of the colon measuring up to 1.5 cm involving the cecum extending to the mid transverse colon with surrounding moderate inflammatory changes. There is additional wall thickening with inflammatory stranding involving the terminal ileum. There is apparent irregularity of the mucosa within the ascending colon which is not well seen without contrast. Air-fluid levels within the colon are seen within this distribution. 10 x 5 mm appendicolith is noted within the mid appendiceal lumen. Appendix is upper limits of normal at 6 mm and is tortuous. Additional 6 mm calcification within the lower right pelvis may reflect an additional appendicolith. No definite evidence of acute appendicitis. Scattered adenopathy of the right lower quadrant mesentery with lymph nodes measuring up to 8 mm in short axis likely reactive. Soft tissues are unremarkable. Bones appear intact. IMPRESSION: 1. Marked wall thickening of the cecum, ascending and transverse colon with associated moderate mesenteric inflammatory stranding is noted with additional wall thickening and mild inflammation of the distal ileum. Differential considerations would include infectious colitis or inflammatory bowel disease. Follow-up colonoscopy after treatment may be beneficial to exclude neoplasm. 2. Appendicoliths are present within a noninflamed appearing appendix. 3. Mild free pelvic fluid, likely reactive. 4. Nonobstructing left nephrolithiasis. The above report was generated using voice recognition software. It may contain grammatical, syntax or spelling errors. Electronically signed by: Bakari Peng M.D. 07/29/2017 1:32 PM [facility] CLINICAL HISTORY: Abdominal pain. COMPARISON STUDY: CT of the abdomen and pelvis July 29, 2017. FINDINGS: The sensitivity for detection of free air is diminished on this supine exam. However, none is identified. Note is made of thumbprinting of the ascending colon and hepatic flexure consistent with marked colonic wall thickening which was shown on CT of July 29, 2015. IMPRESSION: Redemonstration of marked wall thickening of the ascending colon and hepatic flexure consistent with colitis, likely infectious in etiology. No bowel obstruction. Electronically signed by: Estuardo Polk M.D. 07/30/2017 1:59 PM Last 24 Hours Test 08/01/17 06:31 White Blood Count 5.48 K/uL Red Blood Count 3.38 M/uL Hemoglobin 10.5 g/dL Hematocrit 31.8 % Mean Corpuscular Volume 94.1 fL Mean Corpuscular Hemoglobin 31.1 pg Mean Corpuscular Hemoglobin Concent 33.0 g/dl Platelet Count 154 K/uL Mean Platelet Volume 10.0 fL Neutrophils (%) (Auto) 51.3 % Lymphocytes (%) (Auto) 33.4 % Monocytes (%) (Auto) 9.1 % Eosinophils (%) (Auto) 5.5 % Basophils (%) (Auto) 0.5 % Neutrophils # (Auto) 2.81 K/uL Lymphocytes # (Auto) 1.83 K/uL Monocytes # (Auto) 0.50 K/uL Eosinophils # (Auto) 0.30 K/uL Basophils # (Auto) 0.03 K/uL RDW Standard Deviation 42.5 fL RDW Coefficient of Variation 12.4 % Immature Granulocyte % (Auto) 0.2 % Immature Granulocyte # (Auto) 0.01 K/uL Prothrombin Time 11.9 SECONDS Prothromb Time International Ratio 1.1 Activated Partial Thromboplast Time 31.0 SECONDS Partial Thromboplastin Ratio 1.2 Sodium Level 142 mmol/L Potassium Level 3.9 mmol/L Chloride Level 112 mmol/L Carbon Dioxide Level 28 mmol/L Anion Gap 2.0 mmol/L Blood Urea Nitrogen 3 mg/dl Creatinine 0.50 mg/dl Est Creatinine Clear Calc Drug Dose 145.4 ml/min Estimated GFR () 148.4 Estimated GFR (Non- 128.1 BUN/Creatinine Ratio 6.8 Random Glucose 94 mg/dl Calcium Level 8.1 mg/dl Magnesium Level 1.8 mg/dl Total Bilirubin 0.1 mg/dl Direct Bilirubin < 0.1 mg/dl Aspartate Amino Transf (AST/SGOT) 9 U/L Alanine Aminotransferase (ALT/SGPT) 12 U/L Alkaline Phosphatase 60 U/L Total Protein 5.7 gm/dl Albumin 2.5 gm/dl Medication Reconciliation New Medications: Metronidazole (Flagyl) 500 Mg Tab 500 MG PO TID, #42 TAB Ondasetron Odt (Zofran Odt) 4 Mg Tab 4 MG SL Q6H for Nausea, #30 TAB Oxycodone/Acetaminophen 5MG/325MG (Percocet 5MG/325MG) Tab 1 TABLET PO Q4H PRN for Pain, #10 TAB Discharge Exam Physical Exam: General Appearance: no apparent distress Eyes: EOMI ENT: hearing grossly normal Neck: trachea midline Respiratory/Chest: no respiratory distress, no accessory muscle use Extremities: normal inspection 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, alert, normal mood/affect Hospital Course Cdiff colitis - community acquired (likely from [place]) -improving --> continue flagyl PO TID x 14 days; discussed spores/handwashing /bleach wipes etc - she expresses good understanding; discussed spore forming and recurrence risk - she understands to watch sx closely for at least a week after finished w abx -pain/hematochezia likely due to this but see below abdominal pain/hematochezia -most likely Cdiff related, but given severity we discussed colo as outpt in next ~4-8wks to eval further and ensure that she didn't have concomitant IBD anemia -probably from above. repeat CBC ~4wks sooner if clinically warranted stable for home PCP later this week Total Time Spent: Greater than 30 minutes This includes examination of the patient, discharge planning, medication reconciliation, and communication with other providers. Discharge Instructions Please refer to the electronic Patient Visit Report (Discharge Instructions) for additional information. Additional Copies To Olimpia Ewing C.R.N.P
[2017-08-09 12:50] LABS: CRYPTOSPORIDIUM AG TC 37213 NOT DETECTED (NOT DETECTED); ISOSPORA+CYCLOSPORA NOT DETECTED (NOT DETECTED); O&P GIARDIA AG NOT DETECTED (NOT DETECTED); O&P SOURCE OTHER-STOOL
== END 2017-08-01 14:17 | disposition home or self-care (01) | DRG 872 ==
LOC: C.EDB 12:09 → C.MS4W 16:10 → UNDOADMIN 16:10 → EDBEDREQ 16:31 → ENRESERV 16:40
PROVIDERS: ADMIT Hospitalist; ATTEND Family Medicine
DX: A41.9 Sepsis, unspecified organism (principal); A04.7 Enterocolitis due to Clostridium difficile; D62 Acute posthemorrhagic anemia; K92.1 Melena; F17.200 Nicotine dependence, unspecified, uncomplicated

== ENCOUNTER 2018-01-24 21:47 | Emergency (ER) | payer OTHER ==
[~2018-01-24] VITALS: Ht 165.1 cm; Wt 71.0 kg
[~2018-01-24 21:47] MED LIST changes: +ONDA4TAB10 SL; +OXYC-57 PO; -PRENTAB26 PO
[2018-01-24 21:51] VITALS: TEMP 36.6; Ht 165.1 cm; Wt 71.0 kg
[2018-01-24] MEDS: KETOROLAC TROMETHAMINE 30 MG/ML VIAL IV STA (23:13)
[2018-01-24] MEDS: ONDANSETRON INJ 2 MG/ML 2 ML VIAL IV STA (23:14)
[2018-01-24] MEDS: SODIUM CHLORIDE 0.9% 1000ML 1,000 ML IV STA (23:14)
[2018-01-24 23:17] LABS: BASO % 0.5 %; BASO ABS # 0.04 K/uL (0-0.2); EOS % 4.6 %; EOS ABS # 0.36 K/uL (0-0.5); HEMATOCRIT 40.1 % (37-47); HEMOGLOBIN 13.7 g/dL (12.0-16.0); IG# 0.02 K/uL (0.00-0.02); LYMPH ABS # 3.31 K/uL (1.2-3.4); MEAN CELL VOLUME 93.9 fL (80-100); MEAN CORPUSCULAR HEMOGLOBIN 32.1 pg (25-34); MEAN CORPUSCULAR HGB CONC 34.2 g/dl (32-36); MEAN PLATELET VOLUME 9.4 fL (7.4-10.4); MONO % 5.5 %; MONO ABS # 0.43 K/uL (0.11-0.59); NEUT % 47.1 %; NEUT ABS # 3.72 K/uL (1.4-6.5); PLATELET COUNT 196 K/uL (130-400); RED CELL DISTRIBUTION WIDTH CV 12.5 % (11.5-14.5); RED CELL DISTRIBUTION WIDTH SD 42.8 fL (36.4-46.3); WHITE BLOOD COUNT 7.88 K/uL (4.8-10.8)
[2018-01-24 23:51] LABS: ALBUMIN 3.8 gm/dl (3.4-5.0); ALT/SGPT 30 U/L (12-78); AST/SGOT 15 U/L (15-37); BLOOD UREA NITROGEN 8 mg/dl (7-18); CARBON DIOXIDE 27 mmol/L (21-32); CREATININE 0.64 mg/dl (0.60-1.20); GLUCOSE 81 mg/dl (70-99); LIPASE 146 U/L (73-393)
[2018-01-24 23:52] LABS: ALKALINE PHOSPHATASE 78 U/L (45-117); TOTAL PROTEIN 7.2 gm/dl (6.4-8.2)
[2018-01-24 23:55] LABS: POTASSIUM 3.5 mmol/L (3.5-5.1); SODIUM 142 mmol/L (136-145)
[2018-01-25] MEDS: ONDANSETRON INJ 2 MG/ML 2 ML VIAL IV STA (00:02)
[2018-01-25 00:28] VITALS: BP 114/73; PULSE 82; O2SAT 100
--- NOTE | 2018-01-25 01:23 | EMERGENCY ROOM VISIT NOTE ---
History Report prepared by Cyril: Karlie Rojas Under the Supervision of: Dr. Josué Mckeon D.O. First contact with patient: 22:34 Chief Complaint: FLANK PAIN Stated Complaint: DULL CONSTANT PAIN LOWER RT SIDE, SLEEPING 20HR/DA History of Present Illness The patient is a 32 year old female who presents to the Emergency Room with complaints of persistent right lower back pain starting 3 days ago. She describes the pain as throbbing. The pain does not worsen with movement. She states that she has been sleeping 20 hours a day for the past 3 days. She has had some urinary hesitancy. She had some spotting vaginal bleeding several days ago. She has been clammy and sweaty in the morning. She denies any fever, weakness, numbness, nausea, vomiting, diarrhea, cough, rhinorrhea, chest pain, or SOB. She does not have any open wounds or sores. She has a history of tubal ligation. Her period is late. She has a history of kidney stone. Source of History: patient Onset: 3 days ago Position: back (right lower) Quality: other (throbbing) Timing: other (persistent) Associated Symptoms: + diaphoresis, + urinary symptoms, No fevers, No cough , No chest pain, No SOB, No nausea, No vomiting, No diarrhea, No weakness, No numbness Note: Pt reports sleepiness, spotty vaginal bleeding. Review of Systems See HPI for pertinent positives & negatives. A total of 10 systems reviewed and were otherwise negative. Past Medical & Surgical Medical Problems: (1) Bloody diarrhea (2) Kidney stone Surgical Problems: (1) S/P tubal ligation Family History Cancer Diabetes mellitus FH: gallbladder disease Heart disease Hypertension Kidney stones Social History Smoking Status: Current Every Day Smoker Drug Use: none Marital Status: single Housing Status: lives with family Occupation Status: employed Current/Historical Medications No Active Prescriptions or Reported Meds Allergies Coded Allergies: No Known Allergies (Verified , 01/24/18) Physical Exam Vital Signs Date Time Temp Pulse Resp B/P (MAP) Pulse Ox O2 Delivery O2 Flow Rate FiO2 01/25/18 00:28 82 18 114/73 100 01/24/18 23:36 89 18 118/80 100 Room Air 01/24/18 21:51 36.6 90 18 139/92 100 Room Air Physical Exam GENERAL: Sitting up in bed, alert, well appearing, well nourished, no distress, non-toxic EYE EXAM: normal conjunctiva. OROPHARYNX: no exudate, no erythema, lips, buccal mucosa, and tongue normal and mucous membranes are moist NECK: supple, no nuchal rigidity, no adenopathy, non-tender LUNGS: Clear to auscultation. Normal chest wall mechanics HEART: no murmurs, S1 normal and S2 normal ABDOMEN: abdomen soft, non-tender, normo-active bowel sounds, no masses, no rebound or guarding. BACK: Back is symmetrical on inspection and there is no deformity, no midline tenderness, no CVA tenderness. Faint tenderness in right lower back. SKIN: no rashes and no bruising UPPER EXTREMITIES: upper extremities are grossly normal. LOWER EXTREMITIES: No pitting edema. NEURO EXAM: Normal sensorium, cranial nerves II-XII grossly intact, normal speech, no gross weakness of arms, no gross weakness of legs. Medical Decision & Procedures ER Provider Diagnostic Interpretation: Radiology results as stated below per my review and the [facility] radiologist's interpretation: CT Abdomen & Pelvis without contrast: Nonobstructing left renal stone. No evidence of appendicitis or colitis. Laboratory Results 01/24/18 22:52 Red Blood Count 4.27, Mean Corpuscular Volume 93.9, Mean Corpuscular Hemoglobin 32.1, Mean Corpuscular Hemoglobin Concent 34.2, Mean Platelet Volume 9.4, Neutrophils (%) (Auto) 47.1, Lymphocytes (%) (Auto) 42.0, Monocytes (%) (Auto) 5.5, Eosinophils (%) (Auto) 4.6, Basophils (%) (Auto) 0.5, Neutrophils # (Auto) 3.72, Lymphocytes # (Auto) 3.31, Monocytes # (Auto) 0.43, Eosinophils # (Auto) 0.36, Basophils # (Auto) 0.04 01/24/18 22:52 Test 01/24/18 22:52 White Blood Count 7.88 K/uL (4.8-10.8) Red Blood Count 4.27 M/uL (4.2-5.4) Hemoglobin 13.7 g/dL (12.0-16.0) Hematocrit 40.1 % (37-47) Mean Corpuscular Volume 93.9 fL (80-100) Mean Corpuscular Hemoglobin 32.1 pg (25-34) Mean Corpuscular Hemoglobin Concent 34.2 g/dl (32-36) Platelet Count 196 K/uL (130-400) Mean Platelet Volume 9.4 fL (7.4-10.4) Neutrophils (%) (Auto) 47.1 % Lymphocytes (%) (Auto) 42.0 % Monocytes (%) (Auto) 5.5 % Eosinophils (%) (Auto) 4.6 % Basophils (%) (Auto) 0.5 % Neutrophils # (Auto) 3.72 K/uL (1.4-6.5) Lymphocytes # (Auto) 3.31 K/uL (1.2-3.4) Monocytes # (Auto) 0.43 K/uL (0.11-0.59) Eosinophils # (Auto) 0.36 K/uL (0-0.5) Basophils # (Auto) 0.04 K/uL (0-0.2) RDW Standard Deviation 42.8 fL (36.4-46.3) RDW Coefficient of Variation 12.5 % (11.5-14.5) Immature Granulocyte % (Auto) 0.3 % Immature Granulocyte # (Auto) 0.02 K/uL (0.00-0.02) Urine Color YELLOW Urine Appearance CLEAR (CLEAR) Urine pH 6.5 (4.5-7.5) Urine Specific [place] 1.006 (1.000-1.030) Urine Protein NEG (NEG) Urine Glucose (UA) NEG (NEG) Urine Ketones NEG (NEG) Urine Occult Blood NEG (NEG) Urine Nitrite NEG (NEG) Urine Bilirubin NEG (NEG) Urine Urobilinogen NEG (NEG) Urine Leukocyte Esterase NEG (NEG) Urine WBC (Auto) 5-10 /hpf (0-5) Urine RBC (Auto) 0-4 /hpf (0-4) Urine Hyaline Casts (Auto) 0 /lpf (0-5) Urine Epithelial Cells (Auto) >30 /lpf (0-5) Urine Bacteria (Auto) 1+ (NEG) Urine Test NEG (NEG) Anion Gap 8.0 mmol/L (3-11) Est Creatinine Clear Calc Drug Dose 123.6 ml/min Estimated GFR () 135.9 Estimated GFR (Non- 117.2 BUN/Creatinine Ratio 12.6 (10-20) Calcium Level 9.0 mg/dl (8.5-10.1) Total Bilirubin 0.2 mg/dl (0.2-1) Direct Bilirubin < 0.1 mg/dl (0-0.2) Aspartate Amino Transf (AST/SGOT) 15 U/L (15-37) Alanine Aminotransferase (ALT/SGPT) 30 U/L (12-78) Alkaline Phosphatase 78 U/L (45-117) Total Protein 7.2 gm/dl (6.4-8.2) Albumin 3.8 gm/dl (3.4-5.0) Lipase 146 U/L (73-393) Laboratory results per my review. Medications Administered Medications (Trade) Dose Ordered Sig/Herson Route Start Time Stop Time Status Last Admin Dose Admin Sodium Chloride 1,000 ml @ 999 mls/hr Q1H1M STAT IV 01/24/18 22:34 01/24/18 23:34 DC 01/24/18 23:14 999 MLS/HR Ondansetron HCl (Zofran Inj) 4 mg NOW STAT IV 01/24/18 22:34 01/24/18 22:36 DC 01/24/18 23:14 4 MG Ketorolac Tromethamine (Toradol Inj) 30 mg NOW STAT IV 01/24/18 23:08 01/24/18 23:09 DC 01/24/18 23:13 30 MG Ondansetron HCl (Zofran Inj) 4 mg NOW STAT IV 01/24/18 23:08 01/24/18 23:09 DC 01/25/18 00:02 4 MG ED Course ED COURSE: Vital signs were reviewed and showed hypertension. The patients medical record was reviewed The above diagnostic studies were performed and reviewed. ED treatments and interventions as stated above. 2234: Zofran Inj 4 mg IV, NSS 1000 ml @ 999 mls/hr IV. 2238: The patient was evaluated in room A4B. A complete history and physical examination was performed. 2308: Zofran Inj 4 mg IV, Toradol Inj 30 mg IV. 0012: Upon reevaluation, the patient is resting comfortably. I discussed my findings with the patient and she understands and agrees with the treatment plan. Based on the patients age, coexisting illnesses, exam and lab findings the decision to treat as an outpatient was made. The patient remained stable while under my care. The patient appeared well at the time of discharge. Medical Decision Differential diagnoses includes but is not limited to lumbar radiculopathy, muscle strain, facture, cauda equina, mass, and disc herniation. Patient is a 32-year-old female who presents to ER for right flank pain. This is been present for the past 3 days. No weakness or numbness in her extremities. She is able to move bowels and urinate without difficulty. No urinary symptoms. No focal deficit in the lower extremities. She is completely neurologically intact. CBC all BMP, LFTs, bilirubin lipase is unremarkable. UA was contaminated with multiple epithelial cells. was negative. CT abdomen and pelvis was benign. Patient was given IV fluids and Toradol. She did feel significant better. There is no signs of infection. Her pain is truly located in her right lower back. Do not believe this to be gynecologic in origin. I question if this is musculoskeletal. Discussed with Pt concerning signs and symptoms to watch out for. Pt was instructed to follow up with their PCP and discussed with the patient their option to return to the ED at anytime for persistent or worsening symptoms. The appropriate anticipatory guidance and out-patient management, including indications for return to the emergency department, were explained at length to the patient and understood. Medication Reconcilliation Current Medication List: was personally reviewed by me Blood Pressure Screening Patient's blood pressure: Elevated blood pressure Blood pressure disposition: Elevated BP felt to be situational Impression Primary Impression: Right flank pain Scribe Attestation The scribe's documentation has been prepared under my direction and personally reviewed by me in its entirety. I confirm that the note above accurately reflects all work, treatment, procedures, and medical decision making performed by me. Departure Information Dispostion Home / Self-Care Prescriptions No Active Prescriptions or Reported Meds Referrals No Doctor, Assigned (PCP) Forms HOME CARE DOCUMENTATION FORM, IMPORTANT VISIT INFORMATION Patient Instructions ED Flank Pain Uncertain Cause, My [facility] Additional Instructions Please follow up with your primary care doctor with in the next 24 hours. Any worsening of your symptoms, please return to the ED immediately. This includes any fevers greater than 100.4, worsening pain, chest pain, shortness breath, persistent nausea, vomiting, unable to eat or drink, or any other concerning signs or symptoms from your standpoint. Please take Tylenol or Motrin as needed for pain.
--- NOTE | 2018-01-25 07:19 | DIAGNOSTIC IMAGING REPORT ---
ABDOMEN AND PELVIS CT WITHOUT CONTRAST CT DOSE: 313.59 mGy.cm HISTORY: Acute right-sided flank pain r flank pain TECHNIQUE: Multiaxial CT images of the abdomen and pelvis were performed without contrast. A dose lowering technique was utilized adhering to the principles of ALARA. COMPARISON STUDY: CT abdomen and pelvis 07/29/2017. FINDINGS: Minimal subsegmental right basilar atelectasis. No pneumatosis or pneumoperitoneum. The imaged inferior cardiac chambers are unremarkable. Gallbladder is contracted. The liver, spleen, pancreas and adrenal glands are within normal limits. Nonobstructing 3 mm calculus is noted within the inferior pole left kidney. The right kidney and bilateral ureters appear to be within normal limits without obstructive uropathy. Large right pelvic phlebolith is unchanged. Urinary bladder, uterus and right adnexum are unremarkable. Follicular changes are seen within the left ovary. Aorta is normal in course and caliber. No bulky adenopathy. There is no bowel obstruction or focal bowel wall thickening identified. Mild to moderate stool volume throughout the colon. I attenuating material is noted within a noninflamed appendix. Soft tissues are unremarkable. The bones appear to be intact. IMPRESSION: 1. 3 mm nonobstructing calculus of the inferior pole left kidney. No ureteral calculi or obstructive uropathy. 2. No evidence of acute appendicitis. 3. No bowel obstruction or focal bowel wall thickening. Electronically signed by: Bakari Peng M.D. 01/25/2018 7:17 AM Dictated Date/Time: 01/25/2018 7:11 AM
== END 2018-01-25 00:31 | disposition home or self-care (01) ==
LOC: C.EDB 21:48 → C.EDA 01-25 00:31
DX: R10.9 Unspecified abdominal pain (principal); Z83.3 Family history of diabetes mellitus; Z82.49 Family history of ischemic heart disease and other diseases of the circulatory system; F17.200 Nicotine dependence, unspecified, uncomplicated